=== PATIENT | male | born 1940 | race Caucasian/White ===

== ENCOUNTER → 2016-09-28 | Outpatient (CLI) | payer OTHER | LOC: BHFA 09:30 | PROVIDERS: ATTEND Internal Medicine | DX: R07.9 Chest pain, unspecified (principal) ==

== ENCOUNTER 2018-05-11 02:07 | Observation (INO) | payer OTHER ==
[2018-05-11] MEDS ORDERED: NITROGLYCERIN 0.4 MG BTL SL PRN ×2 (02:20→03:01)
[2018-05-11] MEDS ORDERED: NS 1,000 ML IV ONE (02:20)
[2018-05-11] MEDS ORDERED: ASPIRIN 81 MG CHEWABLE TAB PO ONE (02:20)
--- NOTE | 2018-05-11 02:24 | EDPHY ---
H & P Time Seen by Provider: 05/11/18 02:21 HPI/ROS: HPI CHIEF COMPLAINT: Chest discomfort. HISTORY OF PRESENT ILLNESS: 78-year-old male, history of CABG, presents emergency room intermittent chest discomfort. On he was seen at [facility] for chest discomfort. At that time he had a CT angiogram of his chest that was negative for pulmonary embolism. He had a negative workup in the emergency room there and was discharged. He continue have intermittent chest discomfort describes an achy sensation substernal. Nonradiating. Got worse this evening. He called 911 arrived by ambulance. Since arriving to the emergency room denies any current chest discomfort. Is noted he is hypertensive Patient's clinical laboratory aide Davie Smith Past Medical History: Hypertension, coronary artery disease Past Surgical History: CABG that is 18 years of age. Social History: Denies drugs alcohol tobacco Family History: Noncontributory ROS REVIEW OF SYSTEMS: 10 Systems were reviewed and negative with the exception of the elements mentioned in the history of present illness. Exam Constitutional appears well nontoxic no acute distress triage nursing summary reviewed, vital signs reviewed, awake/alert. Hypertension Eyes normal conjunctivae and sclera, EOMI, PERRLA. HENT normal inspection, atraumatic, moist mucus membranes, no epistaxis, neck supple/ no meningismus, no raccoon eyes. Respiratory clear to auscultation bilaterally, normal breath sounds, no respiratory distress, no wheezing. Cardiovascular rate normal, regular rhythm, no murmur, no edema, distal pulses normal. Gastrointestinal soft, non-tender, no rebound, no guarding, normal bowel sounds, no distension, no pulsatile mass. Genitourinary no CVA tenderness. Musculoskeletal no midline vertebral tenderness, full range of motion, no calf swelling, no tenderness of extremities, no meningismus, good pulses, neurovascularly intact. Skin pink, warm, & dry, no rash, skin atraumatic. Neurologic awake, alert and oriented x 3, AAOx3, moves all 4 extremities equally, motor intact, sensory intact, CN II-XII intact, normal cerebellar, normal vision, normal speech. Psychiatric normal mood/affect. Heme/Lymph/Immune no lymphadenopathy. Differential Diagnosis: Differential diagnosis includes but is not limited to: ACS, atypical chest pain, pneumothorax, pneumonia, pulmonary embolism, aortic dissection, congestive heart failure, tumor, musculoskeletal pain, esophageal pain, GERD, peptic ulcer disease, pancreatitis Medical Decision Making: Plan for this patient IV establishment IV fluid bolus , full-dose aspirin, nitroglycerin, chest x-ray, EKG, cardiac marker, rule out acute coronary syndrome. Re-evaluation: EKG interpretation by me on record in [employer] system. Impression time of EKG 2:15 a.m., sinus rhythm rate of 59 without any acute signs of ischemia. Trop 0.01. CT angiogram a from [facility] reviewed negative. Source: Patient, EMS - Medical/Surgical History Hx Asthma: No Hx Chronic Respiratory Disease: No Hx Diabetes: No Hx Cardiac Disease: Yes Hx Renal Disease: No Hx Cirrhosis: No Hx Alcoholism: No Hx HIV/AIDS: No Hx Splenectomy or Spleen Trauma: No Other PMH: TRIPLE BYPASS, STENTS, HTN, HYPERLIPIDEMIA, COLON RESECTION, KIDNEY STONES - Social History Smoking Status: Never smoked Constitutional: Initial Vital Signs Temperature (C) 36.7 C 05/11/18 02:10 Heart Rate 63 05/11/18 02:10 Respiratory Rate 18 05/11/18 02:10 Blood Pressure 194/91 H 05/11/18 02:10 O2 Sat (%) 95 05/11/18 02:10 O2 Delivery Mode Room Air Allergies/Adverse Reactions: allopurinol Allergy (Verified 04/20/13 21:01) amoxicillin trihydrate [From Augmentin] Allergy (Verified 09/28/14 12:52) Penicillins Allergy (Verified 04/20/13 21:01) potassium clavulanate [From Augmentin] Allergy (Verified 09/28/14 12:52) terazosin [From Hytrin] Allergy (Verified 05/11/18 17:29) hytrin Allergy (Uncoded 05/11/18 17:29) Home Medications: Medication Instructions Recorded Aspirin EC [Aspirin EC 81 mg (*)] 81 mg PO DAILY 09/28/14 Atorvastatin Calcium [Lipitor 20 20 mg PO DAILY 09/28/14 mg (*)] Metoprolol Succinate Xr [Toprol Xl 25 mg PO DAILY 05/11/18 25 mg (*)] amLODIPine BESYLATE [Norvasc 2.5 2.5 mg PO DAILY #30 tab 05/11/18 mg (*)] Medical Decision Making - Diagnostics Imaging Results: Imaging Impressions Chest X-Ray 05/11/18 02:20 Impression: No evidence for acute cardiopulmonary abnormality. - Data Points Laboratory Results: Laboratory Results 05/11/18 02:20 05/11/18 02:20 Medications Given: Discontinued Medications Aspirin (Aspirin) 324 mg PO EDNOW ONE Stop: 05/11/18 02:21 Last Admin: 05/11/18 02:55 Dose: Not Given Atorvastatin Calcium (Lipitor) 20 mg PO DAILY [facility] Stop: 11/07/18 12:59 Last Admin: 05/11/18 14:58 Dose: 20 mg Sodium Chloride (Ns) 1,000 mls @ 0 mls/hr IV EDNOW ONE; Wide Open PRN Reason: Protocol Stop: 05/11/18 02:21 Last Admin: 05/11/18 02:54 Dose: 1,000 mls Lisinopril (Zestril) 20 mg PO DAILY [facility] Stop: 11/07/18 12:59 Last Admin: 05/11/18 14:58 Dose: Not Given Metoprolol Succinate (Toprol Xl) 25 mg PO DAILY [facility] Stop: 11/07/18 12:59 Last Admin: 05/11/18 14:59 Dose: 25 mg Point of Care Test Results: Chemistry 05/11/18 02:25 POC Troponin I 0.01 ng/mL ng/mL (0.00-0.08) Departure - Departure Disposition: [facility] Inpatient Acute Clinical Impression: Chest pain Qualifiers: Chest pain type: unspecified Qualified Code(s): R07.9 - Chest pain, unspecified Condition: Good
[2018-05-11 02:27] LABS: PLATELET COUNT 147 10^3/uL (150-400)
[2018-05-11 02:36] LABS: PROTIME(PATIENT) 13.4 SEC (12.0-15.0)
[2018-05-11 02:39] LABS: CREATINE KINASE 56 IU/L (0-224)
[2018-05-11] MEDS ORDERED: ONDANSETRON DISINTEGRATING 4 MG TAB PO PRN (02:58)
[2018-05-11] MEDS ORDERED: ONDANSETRON 4 MG/2 ML VIAL IVP PRN (02:58)
[2018-05-11] MEDS ORDERED: ACETAMINOPHEN 325 MG TAB PO PRN (02:58)
[2018-05-11] MEDS ORDERED: HYDROCODONE/APAP 5/325 TAB PO PRN (02:58)
--- NOTE | 2018-05-11 07:51 | CPEKG ---
Test Reason : OPEN Blood Pressure : / mmHG Vent. Rate : 059 BPM Atrial Rate : 059 BPM P-R Int : 181 ms QRS Dur : 090 ms QT Int : 436 ms P-R-T Axes : 067 044 061 degrees QTc Int : 432 ms Sinus rhythm Probable left atrial enlargement Confirmed by Tomer Gutierrez ([id number]) on 05/11/2018 7:50:59 AM Referred By: Confirmed By:Tomer Gutierrez
--- NOTE | 2018-05-11 09:22 | GHP ---
DATE OF ADMISSION: 05/11/2018 CHIEF COMPLAINT: Chest discomfort. PRIMARY CORRECTIONAL OFFICER LIEUTENANT: Davie Biggs MD. HPI: A 78-year-old male with CAD, hypertension, hyperlipidemia, presenting with substernal chest pain. Difficult to obtain clear history, but was visiting [place] and developed chest pain and was evaluated at [facility] 05/08. Negative testing then included a CTA and troponin. Last night, he developed substernal dull pain while watching TV. There was no radiation-associated shortness of breath, nausea, or vomiting. Pain had been constant until this morning. Pain resolved with SL nitro relieved given by EMS. Currently no CP. Has had dry cough but no fevers, chills, or sweats. No sinus congestion, runny nose. This has been going on for a week. He walks a 3-mile loop at [employer] at a good pace 6 days a week. Denies chest pain or shortness of breath with that. REVIEW OF SYSTEMS: I completed a 10-point review of systems, negative except as noted in HPI. PAST MEDICAL HISTORY: Hypertension, CAD, ulcerative colitis, hyperlipidemia. PAST SURGICAL HISTORY: CABG, ileostomy. SOCIAL HISTORY: Lives with his in [place]. Smoked for 5 years, a pack a day. Occasional alcohol. No illicits. FAMILY HISTORY: Dad healthy, age 94. Mother with heart disease. HOME MEDICATIONS: See medication reconciliation. ALLERGIES: Penicillin, amlodipine. PHYSICAL EXAMINATION: VITAL SIGNS: Temperature 36.6, blood pressure 178/84, heart rate in the 50s. On telemetry was 45, respirations 16, 95% on room air. GENERAL: Mildly pale, lying in bed in no acute distress. HEENT: PERRLA. Moist mucous membranes. CV: Regular rate and rhythm. No murmurs, gallops, or rubs. No lower extremity edema. LUNGS: Clear but diminished throughout. No crackles or wheezing. ABDOMEN: Soft, nontender, and nondistended. Positive bowel sounds. : No Allen. MUSCULOSKELETAL: 5/5 upper and lower extremity strength. NEURO: 2-12 intact. PSYCH: Alert and oriented x3. Somewhat of a difficult historian. LABORATORY DATA: WBC 5, hemoglobin 14, hematocrit 44, platelets 147. Coags within normal. Sodium 139, potassium 4.2, chloride 106, carbon dioxide 27, creatinine 1.3 which was baseline, glucose 153. LFTs within normal. Troponin 0.015. BNP is 535. Lipase 184. IMAGING DATA: Chest x-ray is personally reviewed by me. No opacity. Sternotomy wires in place. TEST DATA: EKG personally reviewed by me. Normal sinus rhythm. Left atrial enlargement. ASSESSMENT AND PLAN: 1. Chest pain: concern for resting angina. Recent CTA negative 05/08. Initial troponin and EKG negative for ischemia here. Cycle troponins. Monitor on telemetry. Lexiscan stress if negative trops. Check a respiratory panel with infectious symptoms. 2. Hyperlipidemia. Statin. 3. CAD. Statin. Aspirin. 4. History of ulcerative colitis status post ileostomy. 5. Diet: N.p.o. for now. 6. DVT prophylaxis. Lovenox. 7. Disposition: Warrants observation admission for telemetry. Repeat troponin , possible cardiac stress test. /[id number]/MODL MTDD
[2018-05-11] MEDS ORDERED: LISINOPRIL 20 MG TAB PO SCH (13:00)
[2018-05-11] MEDS ORDERED: ATORVASTATIN CALCIUM 20 MG TAB PO SCH (13:00)
[2018-05-11] MEDS ORDERED: METOPROLOL SUCCINATE XR 25 MG TAB PO SCH (13:00)
[2018-05-11] MEDS ORDERED: REGADENOSON 0.4 MG/5 ML SYR IVP ONE (13:41)
--- NOTE | 2018-05-11 14:40 | CPR ---
DATE OF PROCEDURE: 05/11/2018 PROCEDURE: Lexiscan nuclear stress test. INDICATION: The patient is a 78-year-old male with a history of coronary artery disease, status post CABG greater than 10 years ago. He was up at [place] just relaxing when he started to feel poorly . He is unable to give more details, except for feeling poorly. His does mention that he had c hest pain during this time. He is very active individual, hiking 3 miles multiple times a week witho ut chest discomfort. PROCEDURE IN DETAIL: Consent was obtained and the patient was placed on continuous telemetry. His r esting EKG reveals sinus bradycardia with a rate of 54, NH interval 173, QRS duration 82, and a QTc o f 426. He has nonspecific ST-T wave changes diffusely. The patient was infused with Lexiscan and co mplained of a bloating sensation in his abdomen. He developed PVCs occurring in bigeminy with the Le xiscan infusion. He also developed a lateral and anterior T-wave inversion in leads V3 through V6 wi th infusion. One minute into recovery, his EKG had normalized. Late in recovery, he developed PACs occurring in bigeminy. He was given caffeine in the recovery phase with resolution of his symptoms. His blood pressure at rest was 142/78 and remained stable throughout the procedure. He did become t achycardic with his heart rate peaking at 100. His heart rate returned back to baseline approximatel y 5 minutes into the recovery phase. PLAN: Await nuclear images. /[id number]/MODL
[2018-05-11 14:54] VITALS: BP 149/72
--- NOTE | 2018-05-11 15:23 | ASMTCMCOM ---
CM Note CM Note Notes: Pt s a 78 y/o man admitted for chest pain and HTN. Pt will most likely d/c independent when medically stable. No therapies ordered at this time. CM available for changes. Plan: Independent Date Signed: 05/11/2018 03:23 PM Electronically Signed By:VELASQUEZ Wu
--- NOTE | 2018-05-11 19:22 | GDS ---
CHIEF COMPLAINT: Chest pain. HISTORY OF PRESENT ILLNESS: A 78-year-old male with CAD, hypertension, hyperlipidemia, presenting with substernal chest pain. It was difficult to obtain a clear history from him, but reviewed outside records and was seen at [facility] 05/08 for chest pain. He had a negative CTA and troponins. Last night, he was resting at 9 p.m. watching a movie, developed substernal chest pain with no associated shortness of breath, nausea, vomiting. Per , states he did appear to be anxious after checking his blood pressure, which then became more elevated. Reports a sore throat for the past week. No fevers, chills, or sweats. HOSPITAL COURSE BY PROBLEM: 1. Atypical chest pain. suspect anxiety played a role. Negative troponin x2 and EKGs. Lexiscan showed a small focal infarct at the apex. No reversible ischemia. Respiratory panel negative. FU with Dr. Biggs. 2. Hypertension: BP consistently elevated here greater than 140. Previously on lisinopril, but was discontinued due to REED. Add low-dose Norvasc. This was listed as an allergy, but reviewed with he and and they state not an allergy. 3. CAD, statin, aspirin and beta-kareem. 4. History of ulcerative colitis status post ileostomy. DISPOSITION: Patient is stable for discharge home with his . Time spent on discharge greater than 30 minutes bedside, reviewing cardiac stress, medications with the patient and . NEW MEDICATIONS: Norvasc 2.5 mg. FOLLOWUP: 1. Dr. Biggs. 2. Dr. Cruz. /[id number]/MODL MTDD
[2018-05-12] MEDS ORDERED: ASPIRIN EC 81 MG TAB PO SCH (09:00)
== END 2018-05-11 17:49 | disposition home or self-care (01) ==
LOC: EDUNIT# → F2W 03:26
PROVIDERS: ADMIT Family Medicine; ATTEND Internal Medicine
DX: R07.9 Chest pain, unspecified (principal); I10 Essential (primary) hypertension; E86.9 Volume depletion, unspecified; I25.10 Atherosclerotic heart disease of native coronary artery without angina pectoris; E78.5 Hyperlipidemia, unspecified; K51.919 Ulcerative colitis, unspecified with unspecified complications; Z79.82 Long term (current) use of aspirin; Z87.891 Personal history of nicotine dependence; Z87.442 Personal history of urinary calculi; Z82.49 Family history of ischemic heart disease and other diseases of the circulatory system; Z95.1 Presence of aortocoronary bypass graft; Z95.5 Presence of coronary angioplasty implant and graft; Z88.0 Allergy status to penicillin; Z90.49 Acquired absence of other specified parts of digestive tract
CPT/HCPCS: 71045; 78452; 93005; 93017; 96360; 99285; A9500; G0378; J2785; 84484-ER

== ENCOUNTER → 2018-05-30 | Day surgery (SDC) | payer OTHER ==
[~2018-05-30] MED LIST: ASPIRIN EC 325 MG TAB PO ONE; DIAZEPAM 5 MG TAB PO ONE; FAMOTIDINE 20 MG TAB PO ONE; HEPARIN 10,000 UNIT/10 ML MDV (1,000 UNIT/ML) ONE; IOPAMIDOL (ISOVUE-370) 150 ML BTL IV ONE; LIDOCAINE 1% 300 MG/30 ML SDV ONE; MIDAZOLAM 2 MG/2 ML VIAL ONE; NS 1,000 ML IV ONE; VERAPAMIL 5 MG/2 ML VIAL ONE; diphenhydrAMINE 25 MG CAP PO ONE; fentaNYL 100 MCG/2 ML INJ ONE
[2018-05-30 09:02] LABS: PLATELET COUNT 150 10^3/uL (150-400)
[2018-05-30 09:11] LABS: INR 1.03 (0.83-1.16); PROTIME(PATIENT) 13.7 SEC (12.0-15.0)
--- NOTE | 2018-05-30 09:14 | PDHPUP ---
History & Physical Update H&P update statement: This history and physical update is based on an assessment of the patient which was completed after admission or registration (within 24 hours), but prior to the surgery/procedure. H&P update: H&P reviewed & patient examined, no change in patient's condition since H&P completed
--- NOTE | 2018-05-30 09:15 | PDPROPOC ---
Sedation Plan of Care Sedation Plan of Care: vital signs stable, mental status noted, patient educated of risks, benefits, alternatives, patient can tolerate sedation ASA Classification: ASA 2 Planned drugs: fentanyl, midazolam Mallampati Score: Class 1 Mallampati Reference Image: Patient passed 3-3-2 rule?: Yes
--- NOTE | 2018-05-30 10:15 | PDDXCAT ---
Diagnostic Cath Note - . Date: 05/30/18 Medical Imaging Specialist: Kalyan Indication: Class I/II angina, intolerance to med therapy or failure to respond High-risk criteria on non-invasive testing: stress-induced moderate-size multiple perfusion defects - Procedure Access: left wrist Procedure: left heart catheterization, coronary angiography, left ventriculogram , vein graft injection, PERALES injection - Materials Left Heart Cath size: 5F Left Heart Cath materials: JL3.5, JR4.0, pigtail - Findings-Left Heart Catheterization LM: Unobstructed LAD: 100% Occluded proximally LCX: 45% luminal irregularities. RCA: 40% Luminal irregularities. rSVG: Patent to right and D1 PERALES: Patent to LAD EDP: 12 mmHg LVEF: 65 Wall motion: normal Complications: none Estimated blood loss: <50ml Closure method: TR Band Assessment: Severe three vessel coronary artery disease. Complete revascuarization with patent SVG to RCA and D1 and PERALES to LAD. Normal LV systolic function. Plan: medical therapy. Intervention: medical therapy. Patient Problems: Problems Problem Status Onset Syncope Acute Chest pain Acute
--- NOTE | 2018-05-30 18:08 | CPEKG ---
Test Reason : OPEN Blood Pressure : / mmHG Vent. Rate : 059 BPM Atrial Rate : 060 BPM P-R Int : 179 ms QRS Dur : 084 ms QT Int : 416 ms P-R-T Axes : 078 054 062 degrees QTc Int : 413 ms Sinus rhythm Confirmed by Tamika Macias ([id number]) on 05/30/2018 6:07:52 PM Referred By: Confirmed By:Tamika Macias
== END | disposition home or self-care (01) ==
LOC: FCATH 08:19
PROVIDERS: ATTEND Internal Medicine Interventional Cardiology
PROC: 4A023N7 Measurement of Cardiac Sampling and Pressure, Left Heart, Percutaneous Approach (ICD-10-PCS; principal; 2018-05-30)
PROC: B2151ZZ Fluoroscopy of Left Heart using Low Osmolar Contrast (ICD-10-PCS; principal; 2018-05-30)
DX: I25.10 Atherosclerotic heart disease of native coronary artery without angina pectoris (principal)
CPT/HCPCS: 93005; 93459; C1769; J1644; J2250; J3010; Q9967

== ENCOUNTER 2018-09-25 21:14 | Inpatient (IN) | payer OTHER ==
--- NOTE | 2018-09-25 21:27 | EDPHY ---
H & P Stated Complaint: syncopal episode followed by n/v Time Seen by Provider: 09/25/18 21:23 - Medical/Surgical History Hx Asthma: No Hx Chronic Respiratory Disease: No Hx Diabetes: No Hx Cardiac Disease: Yes Hx Renal Disease: No Hx Cirrhosis: No Hx Alcoholism: No Hx HIV/AIDS: No Hx Splenectomy or Spleen Trauma: No Other PMH: TRIPLE BYPASS, STENTS, HTN, HYPERLIPIDEMIA, COLON RESECTION, KIDNEY STONES - Social History Smoking Status: Never smoked Constitutional: Initial Vital Signs Temperature (C) 36.2 C 09/25/18 21:22 Heart Rate 60 09/25/18 21:22 Respiratory Rate 16 09/25/18 21:22 Blood Pressure 136/76 H 09/25/18 21:22 O2 Sat (%) 98 09/25/18 21:22 O2 Delivery Mode Room Air Allergies/Adverse Reactions: amoxicillin trihydrate [From Augmentin] Allergy (Verified 09/25/18 21:29) Rash Penicillins Allergy (Verified 09/25/18 21:29) Rash potassium clavulanate [From Augmentin] Allergy (Verified 09/25/18 21:29) Rash terazosin [From Hytrin] Allergy (Verified 09/25/18 21:29) Other-Enter Comments allopurinol Adverse Reaction (Verified 09/25/18 21:29) Rash Home Medications: Medication Instructions Recorded Aspirin EC [Aspirin EC 81 mg (*)] 81 mg PO DAILY 09/28/14 Atorvastatin Calcium [Lipitor 20 20 mg PO DAILY 09/28/14 mg (*)] Metoprolol Succinate Xr [Toprol Xl 25 mg PO DAILY 05/11/18 25 mg (*)] Cyanocobalamin [Vitamin B12 (*)] 1,000 mcg PO DAILY 05/24/18 Herbals/Supplements -Info Only 1 ea PO DAILY 05/24/18 Nitroglycerin [Nitrostat 0.4 mg 0.4 mg PO DAILY PRN 05/24/18 (*)] Medical Decision Making - Diagnostics Imaging: Discussed imaging studies w/ nurses educator Radiologist, I viewed and interpreted images myself ED Course/Re-evaluation: CHIEF COMPLAINT: Syncopal episode HISTORY OF PRESENT ILLNESS: The patient is a 78 y/o male with a history of a triple bypass, cardiac stents, and an ileostomy arriving via EMS for a syncopal episode followed by nausea and vomiting. The patient reports he had an ileostomy blockage followed by bloating and pain. He went in a hot bath which alleviated his abdominal symptoms but when he came out of the bath he had a syncopal episode followed by nausea, vomiting, and feeling lightheaded. He reports that it has been several hours since he had any ileostomy output, which is abnormal. No fever, headache, body aches, chest pain, heart palpitations, shortness of breath, cough, abdominal pain, urinary or bowel complaints, numbness, paresthesias. REVIEW OF SYSTEMS: A comprehensive 10 system review of systems is otherwise negative aside from elements mentioned in the history of present illness and medical decision making. PHYSICAL EXAM: HR, BP, O2 Sat, RR. Temp noted General Appearance: Alert, well hydrated, appropriate, and non-toxic appearing. Head: Atraumatic without scalp tenderness or obvious injury Eyes: Pupils equal, round, reactive to light and accommodation, EOMI, no trauma , no injection. Ears: Clear bilaterally, no perforation, normal landmarks Nose: Atraumatic, no rhinorrhea, clear. Throat: There is no erythema or exudates, no lesions, normal tonsils, mucus membranes moist. Neck: Supple, 2+ carotid upstroke, nontender, no lymphadenopathy. Respiratory: No retractions, no distress, no wheezes, and no accessory muscle use. Lungs are clear to auscultation bilaterally. Cardiovascular: Regular rate and rhythm, no murmurs, rubs, or gallops. Bilateral carotid, radial, dorsalis pedis, and posterior tibial pulses intact. Good capillary refill all extremities. Gastrointestinal: Ileostomy in place. No periosteal hernia. Abdomen is soft, nontender, non-distended, no masses, no rebound, no guarding, no peritoneal signs. Musculoskeletal: Normal active ROM of all extremities, atraumatic. Neurological: Alert, appropriate, and interactive. The patient has normal DTRs and non-focal cranial nerves, motor, sensory, and cerebellar exam. Skin: No rashes, good turgor, no nodules on palpation. Past medical history: Hypertension, hyperlipidemia Past surgical history: Cardiac stents, triple bypass, ileostomy Family history: Denies Social history: Mother and daughter at bedside, lives in [place], retired DIAGNOSTICS/PROCEDURES/CRITICAL CARE TIME: EKG: The 12 lead EKG was interpreted by myself as sinus rhythm with a rate of 53 , ST elevation. See hard copy and/or "tracemaster" electronic copy for interpretation. Abdominopelvic CT: SBO proximal to the terminal ileum. DIFFERENTIAL DIAGNOSIS: The differential diagnosis for the patient's syncope included but was not limited to vasovagal syncope, arrhythmia, dehydration, cardiogenic causes, neurogenic causes, and blood loss. MEDICAL DECISION MAKING: The patient is a 78 y/o male with a history of a triple bypass, cardiac stents, and an ileostomy arriving via EMS for a syncopal episode followed by nausea and vomiting. The patient reports he had an ileostomy blockage followed by bloating and pain. He went in a hot bath which alleviated his abdominal symptoms, but when he came out of the bath he had a syncopal episode followed by nausea, vomiting, and feeling lightheaded. He reports that it has been several hours since he had any ileostomy output, which is abnormal. I suspect he had a vasovagal syncopal episode due to the hot bath. I am concerned about the abdominal bloating and ileostomy blockage. Labs, EKG, and abdominopelvic CT ordered. 2130: I interpreted patient's EKG as sinus rhythm with a rate of 53. 3: I consulted with Dr. Aparicio, general surgeon, who is established with this patient. He agrees with me and believes there might be a blockage. He will consult on this patient. Imaging studies still pending. 2256: I spoke with Dr. Boyd, radiologist, regarding this patient's abdominopelvic CT. The patient has an SBO proximal to the terminal ileum. I will page Dr. Aparicio to admit this patient. 2300: I consulted with Dr. Aparicio, who accepts admission of this patient. NG tube will be placed prior to transfer to the floor. 2305: Reassessed patient and discussed imaging and laboratory findings. I also discussed plan for admission; which the patient and his family are comfortable with. - Data Points Laboratory Results: Laboratory Results 09/25/18 21:39 09/25/18 21:39 09/25/18 09/25/18 09/25/18 21:41 21:39 21:39 WBC 11.68 10^3/uL H 10^3/uL (3.80-9.50) RBC 5.35 10^6/uL 10^6/uL (4.40-6.38) Hgb 16.2 g/dL g/dL (13.7-17.5) Hct 45.7 % % (40.0-51.0) MCV 85.4 fL fL (81.5-99.8) MCH 30.3 pg pg (27.9-34.1) MCHC 35.4 g/dL g/dL (32.4-36.7) RDW 12.3 % % (11.5-15.2) Plt Count 238 10^3/uL 10^3/uL (150-400) MPV 10.3 fL fL (8.7-11.7) Neut % (Auto) 74.5 % H % (39.3-74.2) Lymph % (Auto) 17.9 % % (15.0-45.0) [place] % (Auto) 6.3 % % (4.5-13.0) Eos % (Auto) 0.4 % L % (0.6-7.6) Baso % (Auto) 0.5 % % (0.3-1.7) Nucleat RBC Rel Count 0.0 % % (0.0-0.2) Absolute Neuts (auto) 8.69 10^3/uL H 10^3/uL (1.70-6.50) Absolute Lymphs (auto) 2.09 10^3/uL 10^3/uL (1.00-3.00) Absolute Monos (auto) 0.74 10^3/uL 10^3/uL (0.30-0.80) Absolute Eos (auto) 0.05 10^3/uL 10^3/uL (0.03-0.40) Absolute Basos (auto) 0.06 10^3/uL 10^3/uL (0.02-0.10) Absolute Nucleated RBC 0.00 10^3/uL 10^3/uL (0-0.01) Immature Gran % 0.4 % % (0.0-1.1) Immature Gran # 0.05 10^3/uL 10^3/uL (0.00-0.10) Sodium 133 mEq/L L mEq/L (135-145) Potassium 4.9 mEq/L mEq/L (3.5-5.2) Chloride 100 mEq/L mEq/L (97-110) Carbon Dioxide 18 mEq/l L mEq/l (22-31) Anion Gap 15 mEq/L H mEq/L (6-14) BUN 20 mg/dL mg/dL (7-23) Creatinine 1.4 mg/dL H mg/dL (0.7-1.3) Estimated GFR 49 Glucose 146 mg/dL H mg/dL (70-100) Calcium 10.2 mg/dL mg/dL (8.5-10.4) Magnesium 2.0 mg/dL mg/dL (1.6-2.3) Total Bilirubin 1.0 mg/dL mg/dL (0.1-1.4) Conjugated Bilirubin 0.0 mg/dL mg/dL (0.0-0.5) Unconjugated Bilirubin 1.0 mg/dL mg/dL (0.0-1.1) AST 37 IU/L IU/L (17-59) ALT 44 IU/L IU/L (21-72) Alkaline Phosphatase 68 IU/L IU/L (38-126) POC Troponin I 0.00 ng/mL ng/mL (0.00-0.08) Total Protein 7.6 g/dL g/dL (6.3-8.2) Albumin 4.6 g/dL g/dL (3.5-5.0) Lipase 189 IU/L IU/L (23-300) Point of Care Test Results: Chemistry 09/25/18 21:41 POC Troponin I 0.00 ng/mL ng/mL (0.00-0.08) Departure - Departure Disposition: [facility] Inpatient Acute Clinical Impression: SBO (small bowel obstruction) Syncope Qualifiers: Syncope type: unspecified Qualified Code(s): R55 - Syncope and collapse Condition: Fair Referrals: Bryan Cruz MD [Primary Care Provider] - As per Instructions Report Scribed for: Delmer Card Report Scribed by: Chayito Jerome Date of Report: 09/25/18 Time of Report: 21:27
[2018-09-25 21:43] LABS: PLATELET COUNT 238 10^3/uL (150-400)
[2018-09-25] MEDS ORDERED: IOPAMIDOL (ISOVUE-300) 100 ML BTL ONE (22:14)
--- NOTE | 2018-09-25 22:21 | CPEKG ---
Test Reason : OPEN Blood Pressure : / mmHG Vent. Rate : 053 BPM Atrial Rate : 053 BPM P-R Int : 178 ms QRS Dur : 085 ms QT Int : 443 ms P-R-T Axes : 070 045 068 degrees QTc Int : [address] elevation, consider inferior injury Confirmed by Delmer Card ([id number]) on 09/25/2018 10:21:02 PM Referred By: Delmer Card Confirmed By:Delmer Card
[2018-09-25] MEDS ORDERED: BENZOCAINE UNIT DOSE SPRAY HURRICAINE MM ONE (23:34)
[2018-09-26] MEDS ORDERED: LIDOCAINE 2% JELLY 6 ML TOPICAL SYR ONE (01:14)
[2018-09-26] MEDS ORDERED: HYDROmorphONE/DILAUDID 1 MG/ML INJ IVP PRN (02:58)
[2018-09-26] MEDS ORDERED: ONDANSETRON 4 MG/2 ML VIAL IVP PRN (02:58)
--- NOTE | 2018-09-26 03:03 | SOAPPROG ---
SOAP Progress Note Assessment/Plan: Assessment: 78 male with sbo phx total proctocolectomy for UC with ileostomy 42 yrs ago heent nonicteric chest clear cor rr abd pink ostomy, abd soft, distended, +bs, minimal tenderness, no hernias Plan:ivs, ng, obs, surgery if fails to improve or worsens 09/26/18 03:00 Objective: Vital Signs Temp Pulse Resp BP Pulse Ox 36.7 C 65 16 138/72 H 93 09/26/18 02:18 09/26/18 02:18 09/26/18 02:18 09/26/18 02:18 09/26/18 02:18 09/24/18 09/25/18 09/26/18 05:59 05:59 05:59 Intake Total 100 Output Total 700 Balance -600 ICD10 Worksheet Patient Problems: Problems Problem Status Onset SBO (small bowel obstruction) Acute Syncope Acute Chest pain Acute
[2018-09-26] MEDS: D5W 1/2 NS W/ 20 KCl/L 1,000 ML IV SCH ×2 (03:42→10:59)
--- NOTE | 2018-09-26 09:11 | PDMN ---
Medical Necessity Medical necessity: Pt meets IP criteria per PA & MCG M-210 Intestinal Obstruction; est los >2 mn for SBO; admit for further monitoring, NG tube, IVFs & IV antiemetics; hx total proctocolectomy for UC w/ileostomy; per progress note & order 09/26/18
[2018-09-26 09:36] LABS: PLATELET COUNT 140 10^3/uL (150-400)
--- NOTE | 2018-09-26 15:10 | ASMTCMCOM ---
CM Note CM Note Notes: CM spoke with pt's dtr in the room. Pt was in the restroom. Pt admitted for SBO and has an ileostomy for 42 years. Pt has NG and obstruction is being managed conservatively at this point. If no improvement, surgery is possible. Pt lives independently with his and his dtr lives next door. Anticpate pt will discharge independently. No therapies ordered at this time. CM to follow. D/C Plan: Independent Date Signed: 09/26/2018 03:09 PM Electronically Signed By:Lindsey Mendoza
--- NOTE | 2018-09-26 19:11 | SOAPPROG ---
[facility] Progress Note Assessment/Plan: Assessment: 78 male with sbo phx total proctocolectomy for UC with ileostomy 42 yrs ago heent nonicteric chest clear cor rr abd pink ostomy, abd soft, distended, +bs, minimal tenderness, no hernias Plan:ivs, ng, obs, surgery if fails to improve or worsens 09/26/18 03:00 09/26/18 19:10 MUCH IMPROVED/AFEBRILE/TOLERATING NG CLAMPED CLEAR LIQUIDS/SMALL-BOWEL FOLLOW- THROUGH NEGATIVE PLAN ADVANCE DIET AND DISCHARGE IN THE A.M./RISKS AND OPTIONS FULLY DISCUSSED Objective: Vital Signs Temp Pulse Resp BP Pulse Ox 36.7 C 73 16 148/81 H 95 09/26/18 15:55 09/26/18 15:55 09/26/18 15:55 09/26/18 15:55 09/26/18 15:55 Laboratory Results 09/26/18 08:54 09/26/18 08:54 09/25/18 09/26/18 09/27/18 05:59 05:59 05:59 Intake Total 240 Output Total 100 Balance 140 ICD10 Worksheet Patient Problems: Problems Problem Status Onset SBO (small bowel obstruction) Acute Syncope Acute Chest pain Acute
[2018-09-27 08:14] VITALS: BP 127/69
--- NOTE | 2018-09-27 08:29 | SOAPPROG ---
SOAP Progress Note Assessment/Plan: Assessment/Plan: 78 Y M c remote hx of UC and total colectomy c ileostomy admitted with SBO. Rapid resolution c conservative measures. NGT out. SBFT shows quick passage of contrast to bag. Tolerating regular diet. Dispo: d/c to home c outpatient f/u. S: passing stool. hungry, ordering breakfast. no problems overnight. O: alert, nad ncat no wob rrr abd soft, +ileostomy, +BS 09/27/18 08:29 Objective: Vital Signs Temp Pulse Resp BP Pulse Ox 36.4 C 74 16 127/69 H 95 09/27/18 08:00 09/27/18 08:00 09/27/18 08:00 09/27/18 08:00 09/27/18 08:00 Laboratory Results 09/26/18 08:54 09/26/18 08:54 09/26/18 09/27/18 09/28/18 05:59 05:59 05:59 Intake Total 590 Output Total 100 Balance 490 ICD10 Worksheet Patient Problems: Problems Problem Status Onset SBO (small bowel obstruction) Acute Syncope Acute Chest pain Acute
--- NOTE | 2018-10-04 14:04 | GCON ---
[f rep st] CONSULTATION DATE OF CONSULTATION: 09/25/2018 Patient is a 78-year-old male who is admitted at this time for a small bowel obstruction. He has an ileostomy in the right lower quadrant and has had no real issues with that. He feels like he had an admission several years ago for a bowel obstruction which resolved on its own. He has had very littl e problem since a total proctocolectomy 42 years ago. Admitted at this time with distention, crampy pain and some vomiting. Risks and options fully discussed, and he wishes to proceed. PAST MEDICAL HISTORY: Includes coronary artery bypass. He has also had some coronary stents and a t otal proctocolectomy. He also has a history of kidney stones, hyperlipidemia, and hypertension. SOCIAL HISTORY: Reveals he is . He does not smoke. REVIEW OF SYSTEMS: Negative on a full complete 10-point review except as related to the HPI. ALLERGIES: Amoxicillin. MEDICATIONS: Include Nitrostat, metoprolol, Lipitor, aspirin. PHYSICAL EXAMINATION: GENERAL: Alert, 78-year-old male in no acute distress. HEAD and NECK: Revea ls him to be nonicteric, PERRLA, no oral lesions. NECK: Supple. Full range of motion. No bruits. CHEST: Clear and symmetric. COR: Regular rhythm. He has a well-healed sternotomy scar. ABDOMEN: Soft and slightly distended. He has a pink ileostomy in the right lower quadrant, but with minimal output. Bowel sounds are present. There are no obvious hernias. GENITALIA: Normal. EXTREMITIES: Reveal full range of motion, full pulses. NEUROLOGIC: Physiologic and symmetric. PSYCH: Reveals him to be alert, oriented, and cooperative. IMPRESSION: Small bowel obstruction, probably related to some twist around his ileostomy versus intr aabdominal adhesions from his previous surgery. He is admitted at this time for NG suction, observat ion, IV fluids, and possible surgery if not improving. /[id number]/MODL
--- NOTE | 2018-10-06 13:17 | GDS ---
[f rep st] DISCHARGE SUMMARY DISCHARGE DIAGNOSIS: Small bowel obstruction. SPECIAL TESTS: Abdominal CT scan, abdominal x-rays x2, chest x-rays x2, small bowel follow-through. Please see reports for full details. CONSULTATION: General surgery by Dr. Ton Aparicio. PROCEDURES: None. HOSPITAL COURSE: This is a 78-year-old male who has history of ileostomy for ulcerative colitis, who was admitted for small bowel obstruction. He was successfully managed with conservative measures, i ncluding a nasogastric tube, IV fluids, and observation. The day following admission, the patient im proved rather rapidly. The NG tube was clamped and his diet was advanced to clear liquids, which he tolerated well. His NG tube was then removed. A small bowel follow-through was performed, which was negative for small bowel obstruction. His diet was advanced to a light diet, which he also tolerate d well. He was ultimately discharged 2 days after admission home in good condition. He was passing flatus and stool into his ostomy appliance the day of discharge. He was advised to follow up in our office in 2 weeks. He was advised to call with fever, chills, or any worsening symptoms. /[id number]/MODL
== END 2018-09-27 10:45 | disposition home or self-care (01) | DRG 390 ==
LOC: EDUNIT# → F3E 09-26 02:04 → OBSVTOIN 09-26 08:49
PROVIDERS: ADMIT Surgery; ATTEND Surgery
DX: K56.609 Unspecified intestinal obstruction, unspecified as to partial versus complete obstruction (principal); I25.10 Atherosclerotic heart disease of native coronary artery without angina pectoris; E78.5 Hyperlipidemia, unspecified; Z93.2 Ileostomy status; Z95.1 Presence of aortocoronary bypass graft; Z95.5 Presence of coronary angioplasty implant and graft; Z87.442 Personal history of urinary calculi
CPT/HCPCS: 84484-ER; J2405; Q9967